=== PATIENT | female | born 1945 | race Caucasian/White ===

== ENCOUNTER 2023-11-30 06:06 | Day surgery (SDC) | payer BC, MEDICARE, SELFPAY ==
[2023-11-30] VITALS (15 sets, daily range): BP systolic 108–156; BP diastolic 61–87; BMI 36.9
[2023-11-30] MEDS: LOW STRENGTH ASPIRIN 81 MG PO (06:57)
[2023-11-30] MEDS: NSS 266 ML IV (07:04)
--- NOTE | 2023-11-30 08:26 | ITS.CL.CATH ---
[facility]er - Catheterization
Cardiac Catheterization
Procedure Report:
CARDIAC CATHETERIZATION REPORT
Date of Procedure: 11/30/2023
Referring: Christopher Livingston MD, PhD
Indication: Exertional dyspnea with abnormal stress test, persistent atrial fibrillation
HEMODYNAMIC DATA
AO: 109/60
LV: 109/11
LEFT VENTRICULOGRAPHY: Normal left ventricular wall motion with EF 62% with 1+ mitral regurgitation
CORONARY ANGIOGRAPHY
Dominance: Right
Left Main: Normal
LAD: 30% ostial stenosis with otherwise trivial luminal irregularities
Circumflex: A medium sized ramus intermedius branch is free of disease. The circumflex and obtuse marginal branches have trivial luminal disease
RCA: Dominant vessel with trivial luminal irregularities
Closure Device: None-the procedure was performed via the right radial artery. The Louie's test was normal prior to the procedure.
Radiation (mGy): 211
DAP (cm2.Gy): 18.6
Fluoroscopy time: 3.5 minutes
CONCLUSIONS
1: Normal left ventricular wall motion with EF 62%
2: Mild mitral regurgitation
3. Mild single-vessel CAD as described
Copy to: Christopher Livingston MD, PhD, Nalini Dalton MD
Marcel Boateng MD, [facility], [facility]
== END 2023-11-30 11:24 | disposition home or self-care (01) ==
LOC: CATH 06:06
PROVIDERS: ATTENDING PHYSICIAN Internal Medicine Cardiovascular Disease; OTHER PHYSICIAN Internal Medicine
DX: I48.19 Other persistent atrial fibrillation (principal); R94.39 Abnormal result of other cardiovascular function study; R06.09 Other forms of dyspnea; I25.10 Atherosclerotic heart disease of native coronary artery without angina pectoris; I34.0 Nonrheumatic mitral (valve) insufficiency; I10 Essential (primary) hypertension; E03.9 Hypothyroidism, unspecified; Z79.01 Long term (current) use of anticoagulants
CPT/HCPCS: C1894; 93458; C1760; Q9967

== ENCOUNTER 2024-03-14 10:05 | Day surgery (SDC) | payer BC, MEDICARE, SELFPAY ==
[2024-03-01 12:52] VITALS: BMI 34.9
[2024-03-01 13:34] LABS: % Basophils 0.7 % (0-2); % Immature Granulocytes 0.2 % (0-0.5); % Monocytes 9.5 % (1.7-9.3); % Neutrophils 63.6 % (42.2-75.2); Absolute Basophils 0.1 10^3/uL (0-0.2); Absolute Eosinophils 0.1 10^3/uL (0-0.7); Absolute Monocytes 0.8 10^3/uL (0.1-0.6); Absolute Neutrophils 5.2 10^3/uL (1.4-6.5); Hemoglobin 13.6 g/dL (12.0-16.0); Mean Corp Hgb Conc. 34.9 g/dL (33.0-37.0); Mean Corpuscular Hgb 31.1 pg (27.0-31.0); Mean Corpuscular Volume 89.2 fL (81.0-99.0); Mean Platelet Volume 11.7 fL (7.4-10.4); Nucleated Red Blood Cells % 0 %; Platelet Count 176 10^3/uL (130-400); Red Blood Cell Count 4.37 10^6/uL (4.20-5.40); Red Cell Dist. Width 14.6 % (11.5-14.5); White Blood Cell Count 8.1 10^3/uL (4.8-10.8)
[2024-03-01 13:59] LABS: ALT (SGPT) 31 U/L (0-35); AST (SGOT) 38 U/L (14-36); Albumin 4.4 g/dl (3.5-5.0); Alkaline Phosphatase 93 U/L (38-126); Blood Urea Nitrogen 16 mg/dl (7-17); Carbon Dioxide 28 mmol/L (22-30); Chloride 97 mmol/L (98-107); Estimated Creatinine Clearance 60 ml/min; Glucose 96 mg/dl (70-99); Potassium 4.1 mmol/L (3.5-5.1); Sodium 137 mmol/L (135-145); Total Bilirubin 0.7 mg/dl (0.2-1.3); eGFR > 60.00
[2024-03-14] VITALS (9 sets, daily range): BP systolic 93–155; BP diastolic 49–82; BMI 33.2
--- NOTE | 2024-03-14 16:40 | ITS.CL.ABL ---
[facility] - Ablation
Ablation
Procedure Report:
AFIB ablation:
Ms. Doty is a very pleasant 78 yr old woman with symptomatic persistent AF and atrial flutters failed Sotalol, is recommended for atrial fibrillation ablation.
Date of the Procedure:
03/14/2024
Indications:
Persistent atrial fibrillation / atrial flutter
Pre-Operative Diagnosis:
Persistent atrial fibrillation / atrial flutter
Post-Operative Diagnosis:
Persistent atrial fibrillation / atrial flutter
Procedure Performed:
Atrial fibrillation ablation with Pulsed-Field approach for pulmonary vein isolation
Posterior wall isolation
Performing Physician:
Marianne Chacon MD
Assistants:
EP staff
Anesthesia:
See anesthesia records
Detailed Description of the Procedure:
Written informed consent was obtained from the patient after a full explanation of the risks and benefits of the procedure including the risks of sedation and anesthesia.
The patient was brought to the electrophysiology laboratory in stable condition in fasting state. Continuous electrocardiographic and hemodynamic monitoring was initiated.
The initial rhythm was atrial fibrillation.
The procedure site was meticulously prepared with surgical scrub and allowed to dry with no pooling. Sterile draping was applied to cover the procedure site. The image intensifier was draped with sterile bag and positioned over the patient. After
infusion of local anesthetic, vascular access was obtained under ultrasound guidance and sheaths were placed over guide wire as detailed below.
Sheath and Catheter Placement:
The following catheters / sheaths were placed
Sheaths:
��������� 17Fr steerable sheath (Personeraadrive�, [employer]) in right femoral
��������� 9Fr in right femoral vein
Catheters:
��������� CARTO Pentaray mapping catheter � at locations of RA, LA
��������� Farawave� PFA catheter
��������� ICE catheter -AcuNav - at locations of RA, SVC, and RV.
Intracardiac ECHO:
An 8-Polish AcuNav intracardiac ECHO (ICE) probe was advanced through the 9-Polish sheath in the right femoral vein into the right atrium under fluoroscopic and ICE ultrasound image guidance and a baseline ECHO study was performed. The left atrial
size was dilated. There was moderate tricuspid regurgitation. The aortic valve was grossly normal. There was normal left ventricular systolic functions. There is no pericardial effusion. All the four veins were identified and has flow identified.
There was good flow noted in the HANSA.
During the procedure, ICE was used for monitoring of complications, guidance of trans-septal puncture, monitor the catheter position and tracking ablation lesions. No change in the pericardial space noted throughout the procedure.
Trans-septal Puncture:
Heparin was initiated and infused to maintain appropriate ACT. A pigtail guidewire was advanced through the 8-Polish sheath in the right femoral vein into the superior vena cava under fluoroscopic and ICE guidance. The 9-Polish sheath was exchanged
for a Faradrive sheath which was advanced into the superior vena cava. A transseptal VersaCross RF pigtail via Faradrive connect system was utilized to perform the trans-septal puncture. The apparatus was withdrawn until it was in contact with the
fossa ovalis. The position was adjusted based on fluoroscopy and ultrasound images from ICE. Under fluoroscopic, hemodynamic and ICE ultrasound guidance, left atrium was cannulated by applying RF energy. Once atrial septum was cannulated, the
pigtail wire was advanced into the left atrium. The guide wire was advanced into the left superior pulmonary vein. Both the sheath and the dilator was advanced into the left atrium. The dilator was withdrawn. Blood was aspirated from the Faradrive
sheath and arterial blood confirmed. The sheath was flushed. Saline injection noted into the left atrium on ICE. The mapping catheter was advanced in the sheath into the left pulmonary vein. Left atrial pressure was measured.
3D Electroanatomic Mapping:
Using the Pentaray catheter advanced through sheath into the left atrium, an electroanatomic map (EAM) of the left atrium was created using CARTO mapping system. The map was used for localization of catheter position and tacking of ablation lesions.
The EAM of the left atrium showed 4 pulmonary veins with all 4 veins electrically connected to the body the LA. It showed only scattered areas of low voltage on the posterior and anterior wall of the LA in AF but had good signals in sinus rhythm.
The LA was dilated in size.
Following the EAM, preparation were made for ablation.
Ablation:
Ablation # 1: Pulmonary vein Isolation:
Glycopyrrolate 0.2 mg was given prior to the placement of ablation. Using [employer] pulsed field ablation system, pulmonary vein isolation was achieved. First the ablation catheter was placed in the LSPV and ostial ablation lesions were performed in
a counter clock rhodes approach all around the PV ostium circumferentially. Then the catheter was placed on the antral location and multiple ablation lesions were placed circumferentially on the antrum of the vein.
In the similar fashion, the LIPV were isolated.
Then the catheter was moved to right sided veins. The ostial and antral ablations were placed as noted above.
Patient remained in atrial fibrillation.
Ablation # 3: Posterior wall isolation:
Using the pulsed field ablation catheter, the catheter was placed between left superior pulmonary vein and right severe pulmonary vein with series of overlapping ablation lesions placed.
Using the pulsed field ablation catheter, the catheter was placed on the posterior wall and moved around the posterior wall to have adequate contact and ablations were placed isolating the posterior wall.
Cardioversion:
Once the PV isolation was achieved, decision was made to proceed with cardioversion. A 200 J biphasic shock was applied on the ramirez posterior Zoll patches and sinus rhythm was achieved. No significant pause noted.
EPS and Confirmation of the PVI and bidirectional block:
Following achievement of entrance block at the pulmonary veins, pacing from the HD catheter in each of the four veins at 10 milliamps for 2 milliseconds showed entrance and exit block. All PVI were rechecked at the end of the case and remained
isolated. Entrance and exit block were demonstrated in all veins.
Post ablation Electroanatomic mapping:
Once ablation was completed, the EAM of the LA was done again in sinus rhythm with excellent demarcation of LA myocardium and isolated antral tissue. There was only little scattered scar noted.
The HANSA had healthy signals and was not isolated.
Procedure End
ICE study was done again that showed no epicardial accumulation. No complications noted.
Following the completion of the EP study, catheters were removed. Protamine 40 mg was given at the end of the procedure and ACT was checked repeatedly.
The 17 Fr sheath was downgraded to 10Fr and manual pressure applied. The sheaths were removed and hemostasis achieved with �VASCADE� and manual compression after acceptable ACT is achieved.
Left atrial Pressure:
Mean LA pressure was 17mmHg
Mean RA pressure was 6 mmHg.
Estimated Blood loss:
<10 cc
Specimens Removed:
None.
Implants / Devices:
None
Urine output:
None
Packs / Drains/ Tubes:
None
Instrument / Sponge Count Correct:
Yes
Complications of the Procedure:
None
Condition of Patient at Time of Transfer:
Hemodynamically stable with no neurological or vascular compromise.
Summary:
Successful atrial fibrillation ablation with Pulsed Field approach for pulmonary vein isolation, and posterior wall isolation. .
Figures from the Procedure:
Figure 1: The electroanatomic mapping (EAM) of the left atrium with bipolar voltage (purple indicates normal electrical activity with berumen as no myocardial muscle electric activity indicating a line of block or scar.
--- NOTE | 2024-03-14 18:00 | W.PN.UPDATE ---
Update Note
Progress Note Update
Pt seen post PFA. Right groin with vascade closure, no ht/bleeding, non tender. Initial EKG post procedure SB 50s, no acute changes but went into controlled AFib 60-70s about 1745. Asymptomatic. Reviewed with Dr. Chacon, and will remain on sotalol
at this time, with likely return to SR in the next few days. Will give tonight's dose of sotalol now. Resume connor artis. Followup at [facility] as scheduled. Home later today if groin site/tele remain stable.
[2024-03-14] MEDS: BETAPACE 80 MG PO (18:18)
[2024-03-14] MEDS: ANESTHETIC LOZENGE 1 LOZENGE PO (18:36)
== END 2024-03-14 19:40 | disposition home or self-care (01) ==
LOC: CATH 10:05
PROVIDERS: ATTENDING PHYSICIAN Internal Medicine Cardiovascular Disease; OTHER PHYSICIAN Internal Medicine
DX: I48.19 Other persistent atrial fibrillation (principal); I10 Essential (primary) hypertension; R06.02 Shortness of breath; R00.2 Palpitations; Z79.01 Long term (current) use of anticoagulants; Z79.899 Other long term (current) drug therapy; I25.10 Atherosclerotic heart disease of native coronary artery without angina pectoris; E66.9 Obesity, unspecified; Z68.34 Body mass index [BMI] 34.0-34.9, adult; E78.5 Hyperlipidemia, unspecified; E03.9 Hypothyroidism, unspecified; Z79.890 Hormone replacement therapy; Z90.49 Acquired absence of other specified parts of digestive tract; Z87.891 Personal history of nicotine dependence
CPT/HCPCS: C1892; C1759; 36415; 80053; 85025; 85347; 86850; 86900; 86901; 93005; 93656; C1733; C1760; C1766; C1889

== ENCOUNTER 2024-07-12 09:20 | Day surgery (SDC) | payer OTHER, SELFPAY | END 2024-07-12 11:24 | disposition home or self-care (01) | LOC: CATH 09:20 | PROVIDERS: ATTENDING PHYSICIAN Internal Medicine | DX: I48.19 Other persistent atrial fibrillation (principal); I10 Essential (primary) hypertension; E78.5 Hyperlipidemia, unspecified; I25.10 Atherosclerotic heart disease of native coronary artery without angina pectoris; E03.9 Hypothyroidism, unspecified; Z87.891 Personal history of nicotine dependence; Z79.01 Long term (current) use of anticoagulants | CPT/HCPCS: 92960; 93005 ==

== ENCOUNTER → 2025-02-19 15:08 | Outpatient (REF) | payer OTHER, SELFPAY | LOC: HWRCS 15:08 | PROVIDERS: ATTENDING PHYSICIAN Internal Medicine | DX: I48.19 Other persistent atrial fibrillation (principal); D68.69 Other thrombophilia; I10 Essential (primary) hypertension; I25.10 Atherosclerotic heart disease of native coronary artery without angina pectoris; E78.00 Pure hypercholesterolemia, unspecified | CPT/HCPCS: 93306 ==